=== PATIENT | male | born 1970 | race Caucasian/White ===

== ENCOUNTER 2017-03-30 16:12 | Emergency (ER) | payer SELFPAY ==
[~2017-03-30] VITALS: Ht 170.2 cm; Wt 83.6 kg
[~2017-03-30 16:12] MED LIST: AZITHROMYCIN; DARVOCET N PO; GABAPENTIN300 M1 PO; MELOXICAM; METRONIDAZOLE500 MG PO; MOBIC15 MG PO; MOTRIN 800800 MG/TAB PO; NORCO 325 MG-51 TAB PO; PERCOCET 5/321 UDTAB PO; PHENERGAN 25 TA25 MG PO; TRAMADOL; TRAZODONE50 MG PO
[2017-03-30 16:15] VITALS: BP 108/75; TEMP 98.7
[2017-03-30] MEDS ORDERED: FLEXERIL 1010 MG/TAB PO (16:28)
[2017-03-30 17:16] LABS: COLLECTION METHOD CLEAN CATCH
[2017-03-30 17:28] LABS: MUCOUS Present /lpf; PH 5 (5-8); SQUAMOUS EPITHELIAL None Seen /hpf; URINE APPEARANCE Clear; URINE BACTERIA None Seen /hpf; URINE BILIRUBIN Negative (NEGATIVE); URINE BLOOD Negative (NEGATIVE); URINE COLOR Yellow; URINE GLUCOSE Negative (NEGATIVE); URINE KETONE Negative (NEGATIVE); URINE LEUKOCYTE ESTERASE Negative (NEGATIVE); URINE PROTEIN(semi-quant) Negative (NEGATIVE); URINE RBC 0-2 /hpf; URINE UROBILINOGEN Negative (NEGATIVE); URINE WBC 0-2 /hpf
[2017-03-30] MEDS ORDERED: NAPROXEN 3375 MG/TAB PO (17:48)
[2017-03-30 17:55] VITALS: PULSE 93
== END 2017-03-30 17:55 | disposition home or self-care (01) ==
LOC: COL.ER 16:12
PROVIDERS: Emergency Medicine
DX: S16.1XXA Strain of muscle, fascia and tendon at neck level, initial encounter (principal); M54.9 Dorsalgia, unspecified
CPT/HCPCS: J1170; J1885

== ENCOUNTER 2017-08-09 06:55 | Emergency (ER) | payer SELFPAY ==
[~2017-08-09] VITALS: Ht 170.2 cm; Wt 90.9 kg
[~2017-08-09 06:55] MED LIST changes: +FLEXERIL 1010 MG/TAB PO; +NAPROXEN 3375 MG/TAB PO
[2017-08-09 06:58] VITALS: BP 116/79; TEMP 98.1
[2017-08-09 07:37] LABS: COLLECTION METHOD CLEAN CATCH
[2017-08-09 07:45] LABS: BASO # 0.1 (0.0-0.2); BASO % 1.1 % (0.0-2.0); EOS # 0.3 (0.0-0.7); EOS % 2.2 % (0-4.0); GRAN # 7.1 (1.4-6.5); GRAN % 56.6 % (42.2-75.2); HEMATOCRIT 46.9 % (42.0-52.0); HEMOGLOBIN 16.2 g/dl (13.5-18.0); LYMPH # 4.2 (1.2-3.4); LYMPH % 33.5 % (20.0-51.0); MEAN CELL VOLUME 85 fl (80.0-100.0); MEAN CORPUSCULAR HEMOGLOBIN 30 pg (27.0-31.0); MEAN CORPUSCULAR HGB CONC 35 g/dl (33.0-37.0); MEAN PLATELET VOLUME 9.7 fl (7.4-10.4); MONO # 0.7 (0.1-0.6); MONO % 5.6 % (1.7-9.3); PLATELET COUNT 272 K/mm3 (130-400); REDCELL DISTRIBUTION WIDTH-CV 14.4 % (11.5-14.5)
[2017-08-09] MEDS ORDERED: PERCOCET 325 MG1 TA3 PO (07:46)
[2017-08-09 07:47] LABS: MUCOUS Present /lpf; PH 5 (5-8); SQUAMOUS EPITHELIAL 0-2 /hpf; URINE APPEARANCE Clear; URINE BACTERIA None Seen /hpf; URINE BILIRUBIN Negative (NEGATIVE); URINE BLOOD Negative (NEGATIVE); URINE COLOR Yellow; URINE GLUCOSE 1+ (NEGATIVE); URINE KETONE Trace (NEGATIVE); URINE LEUKOCYTE ESTERASE Negative (NEGATIVE); URINE NITRATE Negative (NEGATIVE); URINE PROTEIN(semi-quant) Negative (NEGATIVE); URINE RBC 0-2 /hpf
[2017-08-09 07:52] LABS: ALBUMIN 4.2 gm/dL (3.5-5.0); BILIRUBIN,TOTAL 0.5 mg/dL (0.0-1.0); C-REACTIVE PROTEIN 0.9 mg/dL (0.0-0.9); CALCIUM 9.2 mg/dL (8.4-10.2); CREATININE, serum 1.11 mg/dL (0.66-1.25); POTASSIUM 3.7 mmol/L (3.4-5.0); TOTAL PROTEIN 7.3 gm/dL (6.4-8.2)
[2017-08-09] MEDS ORDERED: PRILOTC PO (08:15)
[2017-08-09] MEDS ORDERED: ZOFRAN ODT4 MG PO (08:15)
[2017-08-09] MEDS ORDERED: CIPRO 500MG TA500 MG PO (08:16)
[2017-08-09] MEDS ORDERED: PHENERGAN 25 TA25 MG PO (08:16)
[2017-08-09 08:53] VITALS: PULSE 92
== END 2017-08-09 08:57 | disposition home or self-care (01) ==
LOC: COL.ER 06:55
PROVIDERS: Family Medicine
DX: K29.70 Gastritis, unspecified, without bleeding (principal); R73.9 Hyperglycemia, unspecified; G89.29 Other chronic pain; M54.9 Dorsalgia, unspecified; F17.210 Nicotine dependence, cigarettes, uncomplicated; Z90.89 Acquired absence of other organs; Z98.890 Other specified postprocedural states
CPT/HCPCS: J2270; J2405; J7030; Q9967

== ENCOUNTER 2018-04-19 18:19 | Emergency (ER) | payer SELFPAY ==
[~2018-04-19] VITALS: Ht 170.2 cm; Wt 90.5 kg
[~2018-04-19 18:19] MED LIST changes: +CIPRO 500MG TA500 MG PO; +PERCOCET 325 MG1 TA3 PO; +PRILOTC PO; +ZOFRAN ODT4 MG PO
[2018-04-19 18:29] VITALS: BP 111/67
[2018-04-19] MEDS ORDERED: NEURONTIN300 MG/CAP PO (18:42)
[2018-04-19 20:04] VITALS: PULSE 79; TEMP 98
== END 2018-04-19 20:04 | disposition home or self-care (01) ==
LOC: COL.ER 18:19
DX: M25.571 Pain in right ankle and joints of right foot (principal); F17.210 Nicotine dependence, cigarettes, uncomplicated; Z90.89 Acquired absence of other organs
CPT/HCPCS: J1885

== ENCOUNTER 2018-11-11 15:51 | Emergency (ER) | payer SELFPAY ==
[~2018-11-11] VITALS: Ht 170.2 cm; Wt 94.5 kg
[~2018-11-11 15:51] MED LIST changes: +NEURONTIN300 MG/CAP PO
[2018-11-11 16:06] VITALS: TEMP 97.4
[2018-11-11 17:50] LABS: COLLECTION METHOD CLEAN CATCH
[2018-11-11 18:07] LABS: BASO # 0.2 (0.0-0.2); EOS # 0.4 (0.0-0.7); EOS % 2.5 % (0-4.0); GRAN # 7.3 (1.4-6.5); GRAN % 48.5 % (42.2-75.2); HEMATOCRIT 49.2 % (42.0-52.0); HEMOGLOBIN 16.6 g/dl (13.5-18.0); LYMPH # 5.9 (1.2-3.4); LYMPH % 39.2 % (20.0-51.0); MEAN CELL VOLUME 87 fl (80.0-100.0); MEAN CORPUSCULAR HEMOGLOBIN 29 pg (27.0-31.0); MEAN CORPUSCULAR HGB CONC 34 g/dl (33.0-37.0); MEAN PLATELET VOLUME 10.3 fl (7.4-10.4); MONO # 1.2 (0.1-0.6); MONO % 8.2 % (1.7-9.3); PLATELET COUNT 311 K/mm3 (130-400); RED BLOOD COUNT 5.68 M/mm3 (4.20-5.60); REDCELL DISTRIBUTION WIDTH-CV 14.3 % (11.5-14.5)
[2018-11-11 18:11] LABS: ALBUMIN 4.3 gm/dL (3.5-5.0); BILIRUBIN,TOTAL 0.4 mg/dL (0.0-1.0); CALCIUM 9.7 mg/dL (8.4-10.2); CREATININE, serum 1.16 (0.66-1.25); POTASSIUM 4.1 mmol/L (3.4-5.0); TOTAL PROTEIN 8.1 gm/dL (6.4-8.2)
[2018-11-11 18:12] LABS: MUCOUS Present /lpf; PH 5 (5-8); SQUAMOUS EPITHELIAL None Seen /hpf; URINE APPEARANCE Clear; URINE BACTERIA None Seen /hpf; URINE BILIRUBIN Negative (NEGATIVE); URINE BLOOD Negative (NEGATIVE); URINE COLOR Yellow; URINE GLUCOSE Negative (NEGATIVE); URINE KETONE Negative (NEGATIVE); URINE LEUKOCYTE ESTERASE Negative (NEGATIVE); URINE NITRATE Negative (NEGATIVE); URINE PROTEIN(semi-quant) Negative (NEGATIVE); URINE RBC 0-2 /hpf; URINE UROBILINOGEN Negative (NEGATIVE)
[2018-11-11 19:11] VITALS: BP 128/82; PULSE 91
== END 2018-11-11 19:12 | disposition home or self-care (01) ==
LOC: COL.ER 15:51
PROVIDERS: Nurse Practitioner
DX: R10.30 Lower abdominal pain, unspecified (principal); F17.210 Nicotine dependence, cigarettes, uncomplicated; Z88.5 Allergy status to narcotic agent; Z90.89 Acquired absence of other organs
CPT/HCPCS: J1885; J7030; Q9967

== ENCOUNTER → 2018-12-27 | Emergency (ER) | payer SELFPAY ==
[~2018-12-27] VITALS: Ht 170.2 cm; Wt 93.6 kg
[~2018-12-27] MED LIST changes: +B COMPLEX & B121 TAB; +DAILY MULTIPLE1 T18
[2018-12-27 11:30] VITALS: TEMP 97.5
[2018-12-27 13:58] VITALS: BP 104/52; PULSE 92
== END ==
LOC: COL.ER 11:04
DX: S83.91XA Sprain of unspecified site of right knee, initial encounter (principal); F17.210 Nicotine dependence, cigarettes, uncomplicated; Z90.89 Acquired absence of other organs; X50.9XXA Other and unspecified overexertion or strenuous movements or postures, initial encounter
CPT/HCPCS: J1885

== ENCOUNTER 2019-01-24 22:33 | Emergency (ER) | payer OTHER ==
[~2019-01-24] VITALS: Ht 170.2 cm; Wt 93.2 kg
[2019-01-24 22:44] VITALS: TEMP 98.6
[2019-01-25 00:05] VITALS: BP 127/86; PULSE 98
== END 2019-01-25 00:05 | disposition home or self-care (01) ==
LOC: COL.ER 22:33
DX: M79.604 Pain in right leg (principal); F17.210 Nicotine dependence, cigarettes, uncomplicated; Z90.89 Acquired absence of other organs
CPT/HCPCS: J1885

== ENCOUNTER 2019-02-16 20:35 | Emergency (ER) | payer SELFPAY ==
[~2019-02-16] VITALS: Ht 170.2 cm; Wt 88.6 kg
[2019-02-16 20:41] VITALS: TEMP 98
[2019-02-16 21:19] LABS: HEMATOCRIT 45.4 % (42.0-52.0); HEMOGLOBIN 15.3 g/dl (13.5-18.0); MEAN CELL VOLUME 86 fl (80.0-100.0); MEAN CORPUSCULAR HEMOGLOBIN 29 pg (27.0-31.0); MEAN CORPUSCULAR HGB CONC 34 g/dl (33.0-37.0); PLATELET COUNT 320 K/mm3 (130-400)
[2019-02-16 21:20] LABS: ALANINE AMINOTRANSFERASE 44 U/L (21-72); ALBUMIN 4.2 gm/dL (3.5-5.0); ALKALINE PHOSPHATASE 88 U/L (50-136); ANION GAP 9 mmol/L (7-16); AST,SGOT 39 U/L (15-37); BILIRUBIN,TOTAL 0.3 mg/dL (0.0-1.0); BLOOD UREA NITROGEN 17 mg/dL (9-20); CALCIUM 10.1 mg/dL (8.4-10.2); CARBON DIOXIDE 24 mmol/L (22-30); CHLORIDE 106 mmol/L (98-107); CREATINE KINASE 116 U/L (55-170); CREATININE, serum 1.08 (0.66-1.25); GLUCOSE 98 mg/dL (74-106); LIPASE 156 U/L (23-300); POTASSIUM 4.4 mmol/L (3.4-5.0); SODIUM 138 mmol/L (137-145); TOTAL PROTEIN 7.4 gm/dL (6.4-8.2)
[2019-02-16 21:21] LABS: PROTHROMBIN TIME 11.3 SECONDS (9.7-12.8)
[2019-02-16 21:31] LABS: TROPONIN-I < 0.012 ng/mL (0.000-0.035)
[2019-02-16 21:49] LABS: BAND 1 % (0-10); EOSINOPHIL 1 % (0-4); LYMPHOCYTE 41 % (20.0-51.0); NEUTROPHILS 53 % (42.0-75.2); PLATELET ESTIMATE NORMAL (NORMAL)
[2019-02-16 21:50] LABS: HELMET CELLS 1+; STOMATOCYTE 1+; TEAR DROP CELLS 1+
[2019-02-17 00:35] VITALS: BP 115/72; PULSE 72
== END 2019-02-17 00:44 | disposition home or self-care (01) ==
LOC: COL.ER 20:35
PROVIDERS: Emergency Medicine
DX: R07.89 Other chest pain (principal); G43.909 Migraine, unspecified, not intractable, without status migrainosus; F17.210 Nicotine dependence, cigarettes, uncomplicated; Z90.89 Acquired absence of other organs; Z90.49 Acquired absence of other specified parts of digestive tract
CPT/HCPCS: J1885; J7030

== ENCOUNTER 2020-10-04 17:47 | Emergency (ER) | payer SELFPAY ==
[~2020-10-04] VITALS: Ht 170.2 cm; Wt 81.8 kg
[2020-10-04 18:09] VITALS: TEMP 98.2
[2020-10-04] MEDS ORDERED: PREDNISONE20 MG PO (18:28)
[2020-10-04 18:40] VITALS: BP 124/70; PULSE 71
== END 2020-10-04 18:45 | disposition home or self-care (01) ==
LOC: COL.ER 17:47
DX: S29.012A Strain of muscle and tendon of back wall of thorax, initial encounter (principal); M25.512 Pain in left shoulder; F17.210 Nicotine dependence, cigarettes, uncomplicated; Z88.5 Allergy status to narcotic agent; X50.0XXA Overexertion from strenuous movement or load, initial encounter; Y93.F2 Activity, caregiving, lifting; Y99.0 Civilian activity done for income or pay

== ENCOUNTER 2021-01-16 15:23 | Emergency (ER) | payer SELFPAY ==
[~2021-01-16] VITALS: Ht 170.2 cm; Wt 75.5 kg
[~2021-01-16 15:23] MED LIST changes: +PREDNISONE20 MG PO
[2021-01-16 16:23] LABS: HEMOGLOBIN 17.9 g/dl (13.5-18.0); MEAN CELL VOLUME 84 fl (80.0-100.0); MEAN CORPUSCULAR HEMOGLOBIN 29 pg (27.0-31.0); MEAN CORPUSCULAR HGB CONC 34 g/dl (33.0-37.0); MEAN PLATELET VOLUME 10.2 fl (7.4-10.4); PLATELET COUNT 188 K/mm3 (130-400); RED BLOOD COUNT 6.28 M/mm3 (4.20-5.60); REDCELL DISTRIBUTION WIDTH-CV 13.6 % (11.5-14.5)
[2021-01-16 16:30] LABS: HEMATOCRIT 52.7 % (42.0-52.0)
[2021-01-16 16:31] LABS: ALBUMIN 4.2 gm/dL (3.5-5.0); BILIRUBIN,TOTAL 0.6 mg/dL (0.0-1.0); C-REACTIVE PROTEIN 1.6 mg/dL (0.0-0.9); CALCIUM 8.5 mg/dL (8.4-10.2); CREATININE, serum 1.1 (0.66-1.25); POTASSIUM 4.1 mmol/L (3.4-5.0); TOTAL PROTEIN 7.6 gm/dL (6.4-8.2)
[2021-01-16 16:45] LABS: COLLECTION METHOD CLEAN CATCH
[2021-01-16 16:53] LABS: MUCOUS Present /lpf; PH 6 (5-8); SQUAMOUS EPITHELIAL None Seen /hpf; URINE APPEARANCE Clear; URINE BACTERIA None Seen /hpf; URINE BILIRUBIN Negative (NEGATIVE); URINE BLOOD Negative (NEGATIVE); URINE COLOR Amber; URINE GLUCOSE Negative (NEGATIVE); URINE KETONE Negative (NEGATIVE); URINE LEUKOCYTE ESTERASE Negative (NEGATIVE); URINE NITRATE Negative (NEGATIVE); URINE PROTEIN(semi-quant) 1+ (NEGATIVE); URINE RBC 0-2 /hpf
[2021-01-16 17:05] LABS: LYMPHOCYTE 36 % (20.0-51.0); NEUTROPHILS 52 % (42.0-75.2)
[2021-01-16 17:06] LABS: PLATELET ESTIMATE NORMAL (NORMAL)
[2021-01-16 17:25] VITALS: BP 97/65; PULSE 79; TEMP 99.1
[2021-01-17 07:26] LABS: PATHOLOGY DIFF REVIEW OK
== END 2021-01-16 17:25 | disposition home or self-care (01) ==
LOC: COL.ER 15:23
PROVIDERS: Nurse Practitioner
DX: U07.1 COVID-19 (principal); Z87.891 Personal history of nicotine dependence
CPT/HCPCS: J7030

== ENCOUNTER 2021-08-05 11:14 | Emergency (ER) | payer OTHER ==
[~2021-08-05] VITALS: Ht 170.2 cm; Wt 75.0 kg
[2021-08-05 11:47] VITALS: BP 108/77; TEMP 98.1
[2021-08-05 12:20] LABS: HEMATOCRIT 49.3 % (42.0-52.0); HEMOGLOBIN 16.7 g/dl (13.5-18.0); MEAN CELL VOLUME 87 fl (80.0-100.0); MEAN CORPUSCULAR HEMOGLOBIN 29 pg (27-31); MEAN CORPUSCULAR HGB CONC 34 g/dl (33.0-37.0); MEAN PLATELET VOLUME 9.7 fl (7.4-10.4); PLATELET COUNT 307 K/mm3 (130-400); RED BLOOD COUNT 5.68 M/mm3 (4.20-5.60); REDCELL DISTRIBUTION WIDTH-CV 14.3 % (11.5-14.5)
[2021-08-05 12:40] LABS: ALBUMIN 4.3 gm/dL (3.5-5.0); BILIRUBIN,TOTAL 0.4 mg/dL (0.2-1.2); C-REACTIVE PROTEIN 0.58 mg/dL (0.00-0.50); CALCIUM 9.2 mg/dL (8.4-10.2); CREATININE, serum 1.02 mg/dL (0.72-1.25); POTASSIUM 4.4 mmol/L (3.5-4.5); TOTAL PROTEIN 7.8 gm/dL (6.2-8.1)
[2021-08-05 12:55] LABS: BASOPHIL 1 % (0-2); EOSINOPHIL 5 % (0-4); NEUTROPHILS 44 % (42.0-75.2)
[2021-08-05 12:56] LABS: LYMPHOCYTE 42 % (20.0-51.0); PLATELET ESTIMATE NORMAL (NORMAL); POLYCHROMASIA 1+
[2021-08-05] MEDS ORDERED: DOXYCYCLINE HY100 MG PO (13:23)
[2021-08-05 13:45] VITALS: PULSE 75
== END 2021-08-05 13:45 | disposition home or self-care (01) ==
LOC: COL.ER 11:14
PROVIDERS: Physician Assistant
DX: M54.50 Low back pain, unspecified (principal); D72.829 Elevated white blood cell count, unspecified; R79.82 Elevated C-reactive protein (CRP); F17.210 Nicotine dependence, cigarettes, uncomplicated; Z96.82 Presence of neurostimulator

== ENCOUNTER 2024-01-04 06:53 | Emergency (ER) | payer OTHER ==
[~2024-01-04] VITALS: Ht 170.2 cm; Wt 73.6 kg
[~2024-01-04 06:53] MED LIST changes: +DOXYCYCLINE HY100 MG PO
[2024-01-04 07:02] VITALS: BP 128/78; TEMP 98.4
[2024-01-04] MEDS ORDERED: PREDNISONE20 MG PO (07:28)
[2024-01-04 07:33] VITALS: PULSE 98
== END 2024-01-04 07:33 | disposition home or self-care (01) ==
LOC: COL.ER 06:53
DX: G89.29 Other chronic pain (principal); M54.50 Low back pain, unspecified; F17.210 Nicotine dependence, cigarettes, uncomplicated